=== PATIENT | male | born 1980 | race Caucasian/White ===

== ENCOUNTER → 2017-07-19 | Outpatient (CLI) | payer MEDICARE, MEDICAID ==
[~2017-07-19] MED LIST: ADVAIR 250/5028 PUFF IN; ASPIRIN EC325 M1 PO; CEFDINIR 300MG300 MG PO; CEFDINIR300 M1 PO; CITALOPRAM20 MG PO; CLARITIN10 MG PO; FLEXERIL10 M1 PO; GABAPENTIN 600600 MG PO; HYDROCODONE W/1 TAB PO; IBUPROFEN800 MG PO; LEXAPRO 10 MG T10 MG PO; LEXAPRO 20 MG T20 MG PO; MEDROL 4MG. DOSE4 MG PO; NAPROSYN 500MG500 MG; NAPROSYN 500MG500 MG PO; NORCO 325 MG-51 TAB PO; OMNICEF300 MG PO; PREDNISONE 20MG20 MG PO; XANAX 0.5MG TA0.5 MG PO; XOPENEX HF0.045 MG/A IH
--- NOTE | 2017-07-19 14:45 | RADIOLOGY REPORT PS360 ---
WRIST-3 VIEWS-LT HISTORY: LEFT WRIST PAIN ORDERING PHYSICIAN: Gamaliel Case MD PATIENT AGE: 36 years COMPARISON: None FINDINGS: No fracture or dislocation. No lytic or blastic change. There is normal mineralization. The joint spaces are well-preserved. No significant degenerative/arthritic changes. No erosive changes evident. IMPRESSION: Negative, no acute finding
== END ==
LOC: RAD 14:26
DX: M25.532 Pain in left wrist (principal)